=== PATIENT | male | born 1980 | race Caucasian/White ===

== ENCOUNTER → 2021-12-29 09:53 | Outpatient (CLI) | payer OTHER, SELFPAY ==
--- NOTE | ~2021-12-29 | CT_ITS ---
EXAMINATION: CT abdomen pelvis wo con DATE: 12/29/2021 10:14 INDICATION: Hypertension and hyperaldosteronism. TECHNIQUE: Computed tomography (CT) of the abdomen and pelvis was performed without intravenous contr ast. Automated exposure control and iterative reconstruction technique were employed. The dose-length product was 1226.98 mGy-cm. COMPARISON: None FINDINGS: Calcified nodule at the lingula along with calcified bilateral hilar and mediastinal lymph nodes and a single splenic calcification, all consistent with old granulomatous disease. Heart size is normal. No pericardial or pleural effusion. Diffuse hepatic steatosis. Gallbladder, pancreas, bilateral adren al glands and kidneys are normal. Abdominal and lower thoracic aorta as well as its major branch vess els are all normal in caliber with no evident atherosclerotic calcifications. Bladder is normal. Leighton ls including the appendix are normal. No free intraperitoneal gas or fluid. No pathologically enlarge d abdominal or pelvic lymphadenopathy. A few mildly prominent left inguinal lymph nodes which are lik lucy reactive. L5 spondylolysis with bilateral pars interarticularis defects but without spondylolisth esis. Mild lumbar and lower thoracic spondylosis. IMPRESSION: 1. Normal bilateral adrenal glands. 2. Diffuse hepatic steatosis. 3. L5 spondylolysis. Reviewed, dictated and finalized at location B.
== END ==
PROVIDERS: PCP Family Medicine; Visit Provider Family Medicine
DX: I10 Essential (primary) hypertension (principal); E26.9 Hyperaldosteronism, unspecified; K76.0 Fatty (change of) liver, not elsewhere classified; M47.816 Spondylosis without myelopathy or radiculopathy, lumbar region
CPT/HCPCS: 74176